=== PATIENT | female | born 1960 | race Two or more races ===

== ENCOUNTER 2022-07-02 11:08 | Emergency (ER) | payer MEDICAID ==
[~2022-07-02] VITALS: Ht 157.5 cm; Wt 79.0 kg
[2022-07-02] MEDS ORDERED: cefTRIAXone SOD 1,000 MG VL IM ONE (12:15)
[2022-07-02 12:33] VITALS: BP 186/80
[2022-07-02] MEDS ORDERED: CLIN300C8 PO (12:36)
== END 2022-07-02 12:40 | disposition home or self-care (01) ==
LOC: ER 11:08
DX: K04.7 Periapical abscess without sinus (principal); Z88.1 Allergy status to other antibiotic agents
CPT/HCPCS: 96372; 99283; J0696